=== PATIENT | male | born 1980 | race Caucasian/White ===

== ENCOUNTER → 2018-02-04 | Outpatient (REF) | payer OTHER ==
[2018-02-04 15:30] LABS: CHLAMYDIA DNA AMPLIFICATION NEGATIVE (NEGATIVE); GC DNA AMPLIFICATION NEGATIVE (NEGATIVE)
== END ==
LOC: M LAB REF 13:46
DX: Z11.3 Encounter for screening for infections with a predominantly sexual mode of transmission (principal)